=== PATIENT | male | born 1975 | race Caucasian/White ===

== ENCOUNTER 2018-04-24 14:44 | Emergency (ER) | payer MEDICAID ==
[2018-04-24 14:50] VITALS: BP 147/95
[2018-04-24] MEDS ORDERED: predniSONE 20 MG TABLET PO STA (15:10)
--- NOTE | 2018-04-24 15:13 | ED Physician Documentation ---
History of Present Illness - Stated complaint Stated Complaint: QUINONEZ/BODY SORES - Chief complaint Chief Complaint: General - History obtained from History obtained from: Patient - History of Present Illness Timing: How many weeks ago (4) Pain level max: 4 Pain level now: 4 Improved by: nothing Worsened by: nothing - Additonal information Additional information: 43-year-old male states that he had unprotected sex with a partner in mid February. Approximately 2-3 weeks later, started having body aches, muscle aches in his legs and a diffuse rash over his body. No dysuria. No rashes in the genital area. Has had a 5-10 pound weight loss over the past month. Decreased appetite. No abdominal pain. Review of Systems Constitutional: denies: Fever, Chills Nose: denies: Rhinorrhea / runny nose, Congestion Throat: denies: Sore throat Cardiac: denies: Chest pain / pressure GI: denies: Vomiting, Diarrhea Skin: denies: Rash Musculoskeletal: denies: Neck pain, Back pain Neurologic: denies: Focal weakness, Numbness, Headache PD PAST MEDICAL HISTORY - Past Medical History Past Medical History: Yes Psych: Anxiety - Past Surgical History Past Surgical History: No - Present Medications Home Medications: Ambulatory Orders Medication Instructions Recorded Confirmed predniSONE [Deltasone] 10 mg PO [id number] #42 tab 04/24/18 - Allergies Allergies/Adverse Reactions: Allergies Allergy/AdvReac Type Severity Reaction Status Date / Time No Known Drug Allergies Allergy Verified 04/24/18 14:50 - Social History Does the pt smoke?: Yes Smoking Status: Current every day smoker Does the pt drink ETOH?: Yes Does the pt have substance abuse?: Yes - Immunizations Immunizations are current?: No PD ED PE NORMAL - Vitals Vital signs reviewed: Yes - General General: Alert and oriented X 3, No acute distress - HEENT HEENT: Moist mucous membranes - Neck Neck: Supple, no meningeal sign - Cardiac Cardiac: RRR, Strong equal pulses - Respiratory Respiratory: No respiratory distress, Clear bilaterally - Male Male : Other (normal external genital exam.) - Back Back: No spinal TTP - Derm Derm: Warm and dry, Other (diffuse macular rash over the body and face. no pustules no vesicles. ) - Neuro Neuro: Alert and oriented X 3 Results - Vitals Vitals: Vital Signs - 24 hr 04/24/18 14:46 Temperature 37.3 C Heart Rate 116 H Respiratory 20 Rate Blood Pressure 147/95 H O2 Saturation 97 Oxygen O2 Source Room air - Labs Labs: Laboratory Tests 04/24/18 04/24/18 15:15 15:15 WBC 9.1 RBC 4.25 L Hgb 15.1 Hct 43.8 MCV 102.9 H MCH 35.5 H MCHC 34.5 RDW 13.2 Plt Count 142 MPV 8.0 Neut # (Auto) 7.0 H Lymph # (Auto) 1.2 L [place] # (Auto) 0.8 Eos # (Auto) 0.0 Baso # (Auto) 0.1 Absolute Nucleated RBC 0.00 Nucleated RBC % 0.0 Sodium 132 L Potassium 3.7 Chloride 97 L Carbon Dioxide 22 Anion Gap 13.0 BUN 5 L Creatinine 0.6 Estimated GFR (MDRD) 148 Glucose 104 H Calcium 8.7 Total Bilirubin 0.7 AST 129 H ALT 95 H Alkaline Phosphatase 82 Total Protein 8.5 H Albumin 3.5 Globulin 5.0 H Albumin/Globulin Ratio 0.7 L Lipase 37 PD MEDICAL DECISION MAKING - ED course Complexity details: reviewed results, re-evaluated patient, considered differential, d/w patient ED course: 43-year-old male presents to the emergency department with what sounds like a viral syndrome versus possible early HIV. HIV testing will not be returned back today, we will have him follow-up closely with his doctor for further evaluation and care. Will place on steroids to see if this helps his rash or not. Unclear etiology. Does not appear to be consistent with syphilis. There is no lymphadenopathy in the inguinal area. No penile discharge. He is very well-appearing, nontoxic. Afebrile. Does have multiple minor lab abnormalities but nothing that requires emergent intervention at this time. Patient counseled regarding signs and symptoms for which I believe and urgent re- evaluation would be necessary. Patient with good understanding of and agreement to plan and is comfortable going home at this time This document was made in part using voice recognition software. While efforts are made to proofread this document, sound alike and grammatical errors may occur. Departure - Departure Disposition: 01 Home, Self Care Clinical Impression: Rash and nonspecific skin eruption Condition: Good Instructions: ED Dermatitis Non Specific Rash [place] [facility] [place]] [facility] [Provider Group] [facility] [Provider Group] Prescriptions: predniSONE [Deltasone] 10 mg PO [id number] #42 tab Comments: Your HIV test is pending at this time. You should follow-up with your doctor for further care. It is important that you follow-up closely with [place]. Return if you worsen Discharge Date/Time: 04/24/18 15:32
[2018-04-24 15:23] LABS: BASOPHILS # (AUTO) 0.1 10^3/uL (0.0-0.1); BASOPHILS % (AUTO) 0.7 %; EOSINOPHILS % (AUTO) 0.5 %; HGB - HEMOGLOBIN 15.1 g/dL (14.0-18.0); LYMPHOCYTES # (AUTO) 1.2 10^3/uL (1.5-3.5); LYMPHOCYTES % (AUTO) 12.7 %; MEAN CORPUSCULAR HEMOGLOBIN 35.5 pg (27.0-31.0); MEAN CORPUSCULAR HGB CONC 34.5 g/dL (32.0-36.0); MEAN CORPUSCULAR VOLUME 102.9 fL (80.0-94.0); MONOCYTES # (AUTO) 0.8 10^3/uL (0.0-1.0); MONOCYTES % (AUTO) 8.5 %; NEUTROPHILS % (AUTO) 77.6 %; PLT - PLATELET COUNT 142 10^3/uL (130-450); RED BLOOD COUNT 4.25 10^6/uL (4.70-6.10); RED CELL DISTRIBUTION WIDTH 13.2 % (12.0-15.0); WHITE BLOOD COUNT 9.1 x10^3/uL (4.8-10.8)
[2018-04-24 15:36] LABS: ALBUMIN 3.5 g/dL (3.2-5.5); ALBUMIN/GLOBULIN RATIO 0.7 (1.0-2.2); BILIRUBIN,TOTAL 0.7 mg/dL (0.2-1.0); CALCIUM 8.7 mg/dL (8.5-10.3); CREATININE 0.6 mg/dL (0.6-1.2); TOTAL PROTEIN 8.5 g/dL (6.7-8.2)
[2018-04-25 13:45] LABS: HIV AG/AB 4TH GEN NON-REACTIVE (NON-REACTIVE)
== END 2018-04-24 15:32 | disposition home or self-care (01) ==
LOC: ED 14:44
DX: R21 Rash and other nonspecific skin eruption (principal); F17.200 Nicotine dependence, unspecified, uncomplicated
CPT/HCPCS: 36415; 80053; 83690; 85025; 87389; 99283; J7512

== ENCOUNTER 2018-05-09 12:15 | Outpatient (CLI) | payer MEDICAID ==
[2018-05-09 17:57] LABS: ALBUMIN 3.5 g/dL (3.2-5.5); ALBUMIN/GLOBULIN RATIO 0.6 (1.0-2.2); BILIRUBIN,TOTAL 0.7 mg/dL (0.2-1.0); CALCIUM 8.7 mg/dL (8.5-10.3); CREATININE 0.7 mg/dL (0.6-1.2); TOTAL PROTEIN 9.3 g/dL (6.7-8.2)
[2018-05-09 18:02] LABS: EOSINOPHILS % (AUTO) 0.7 %; HGB - HEMOGLOBIN 15.8 g/dL (14.0-18.0); LYMPHOCYTES % (AUTO) 12.7 %; MEAN CORPUSCULAR HEMOGLOBIN 35.3 pg (27.0-31.0); MEAN CORPUSCULAR HGB CONC 33.5 g/dL (32.0-36.0); MEAN CORPUSCULAR VOLUME 105.4 fL (80.0-94.0); MEAN PLATELET VOLUME 8.5 fL (7.4-11.4); MONOCYTES % (AUTO) 11.1 %; NEUTROPHILS % (AUTO) 74.5 %; PLT - PLATELET COUNT 329 10^3/uL (130-450); RED BLOOD COUNT 4.48 10^6/uL (4.70-6.10); RED CELL DISTRIBUTION WIDTH 14.3 % (12.0-15.0); WHITE BLOOD COUNT 10.5 x10^3/uL (4.8-10.8)
[2018-05-09 18:04] LABS: ABNORMAL LYMPHS % (MANUAL) 0 %
[2018-05-09 19:54] LABS: BAND NEUTROPHILS % (MANUAL) 4 %; LYMPHOCYTES # (MANUAL) 1.9 10^3/uL (1.5-3.5); LYMPHOCYTES % (MANUAL) 17 %; MONOCYTES # (MANUAL) 1.1 10^3/uL (0.0-1.0); NEUTROPHILS # (MANUAL) 7.6 10^3/uL (1.5-6.6); NEUTROPHILS % (MANUAL) 68 %; PLATELET ESTIMATE, MANUAL NORMAL (130-450,000) (NORMAL); PLATELET MORPHOLOGY NORMAL APPEARANCE (NORMAL); RBC MORPHOLOGY (MULTIPLE) NORMAL APPEARANCE (NORMAL)
[2018-05-09 19:55] LABS: DIFFERENTIAL COMMENT MANUAL DIFFERENTIAL
== END 2018-05-09 12:16 | disposition home or self-care (01) ==
LOC: LAB.F 12:15
PROVIDERS: ATTEND Internal Medicine
DX: L42 Pityriasis rosea (principal)
CPT/HCPCS: 36415; 80053; 81599; 85025; 86592

== ENCOUNTER 2019-07-02 16:31 | Emergency (ER) | payer SELFPAY ==
[2019-07-02 17:24] LABS: BILIRUBIN,URINE NEGATIVE (NEGATIVE); GLUCOSE, URINE (UA) NEGATIVE (NEGATIVE); KETONES,URINE (UA) 40 mg/dL (NEGATIVE); LEUKOCYTE ESTERASE, URINE NEGATIVE (NEGATIVE); NITRITE,URINE NEGATIVE (NEGATIVE); OCCULT BLOOD,URINE TRACE-INTA (NEGATIVE); PH,URINE 7.5 PH (5.0-7.5); PROTEIN,URINE TRACE mg/dL (NEGATIVE); UROBILINOGEN,URINE 0.2 (NORMAL) E.U./dL (NORMAL)
[2019-07-02 17:26] LABS: CLARITY,URINE CLEAR (CLEAR)
--- NOTE | 2019-07-02 17:42 | ED Physician Documentation ---
PD HPI PED ILLNESS - Stated complaint Stated Complaint: MALE - Chief complaint Chief Complaint: General - History obtained from History obtained from: Patient - History of Present Illness Timing - onset: Other (Previously healthy 44-year-old gentleman has had several days of pink-tinged urine and blood-tinged semen today. He is not sexually active and has not been in about a year. He denies testicular or abdominal pain. No rectal pain. He is never had this before.) Review of Systems Constitutional: denies: Fever, Chills Cardiac: reports: Reviewed and negative Respiratory: reports: Reviewed and negative PD PAST MEDICAL HISTORY - Past Medical History Past Medical History: Yes Cardiovascular: None Respiratory: None Neuro: None Endocrine/Autoimmune: None GI: None : None HEENT: None Psych: Anxiety Musculoskeletal: None Derm: None - Past Surgical History Past Surgical History: No - Present Medications Home Medications: Ambulatory Orders Medication Instructions Recorded Confirmed predniSONE [Deltasone] 10 mg PO [id number] #42 tab 04/24/18 Ciprofloxacin HCl [Cipro] 500 mg PO BID #20 tablet 07/02/19 - Allergies Allergies/Adverse Reactions: Allergies Allergy/AdvReac Type Severity Reaction Status Date / Time No Known Drug Allergies Allergy Verified 07/02/19 16:53 - Social History Does the pt smoke?: Yes Smoking Status: Current every day smoker Does the pt drink ETOH?: Yes Does the pt have substance abuse?: Yes - Immunizations Immunizations are current?: No Immunizations: TDAP >10years/unknown - POLST Patient has POLST: No PD ED PE NORMAL - Vitals Vital signs reviewed: Yes - General General: Alert and oriented X 3, No acute distress - Abdomen Abdomen: Normal bowel sounds, Soft, Non tender - Male Male : Other (Nontender testicles with normal lie normal cremaster reflex. No hernia mass.) - Back Back: No CVA TTP, No spinal TTP - Neuro Neuro: Alert and oriented X 3, Normal speech Results - Vitals Vitals: Vital Signs - 24 hr 07/02/19 16:49 Temperature 37 C Heart Rate 88 Respiratory 16 Rate Blood Pressure 149/89 H O2 Saturation 99 Oxygen O2 Source Room air - Labs Labs: Laboratory Tests 07/02/19 17:02 Urine Color YELLOW Urine Clarity CLEAR Urine pH 7.5 Ur Specific [place] 1.020 Urine Protein TRACE Urine Glucose (UA) NEGATIVE Urine Ketones 40 H Urine Occult Blood TRACE-INTA Urine Nitrite NEGATIVE Urine Bilirubin NEGATIVE Urine Urobilinogen 0.2 (NORMAL) Ur Leukocyte Esterase NEGATIVE Ur Microscopic Review NOT INDICATED Urine Culture Comments NOT INDICATED PD MEDICAL DECISION MAKING - ED course ED course: He does not have any physical findings of epididymitis, but his complaints are most similar to that and as such he is given antibiotics for presumptive epididymitis. Departure - Departure Disposition: 01 Home, Self Care Clinical Impression: Blood in semen Condition: Good Record reviewed to determine appropriate education?: Yes Instructions: ED Epididymitis Prescriptions: Ciprofloxacin HCl [Cipro] 500 mg PO BID #20 tablet Comments: Which you are describing is most consistent with something called epididymitis. If it does not get better after a few days with the antibiotics please return for reevaluation, anytime if worse. Follow-up with your doctor in a week regardless.
[2019-07-02 17:51] VITALS: BP 161/81
[2019-07-02 21:23] LABS: TRICHOMONAS VAGINALIS DNA NEGATIVE (NEGATIVE)
== END 2019-07-02 17:57 | disposition home or self-care (01) ==
LOC: ED 16:31
DX: N48.89 Other specified disorders of penis (principal); F17.200 Nicotine dependence, unspecified, uncomplicated
CPT/HCPCS: 81001; 81003; 87086; 87491; 87591; 87661; 99283

== ENCOUNTER 2020-07-11 16:52 | Outpatient (CLI) | payer MEDICAID, OTHER | END 2020-07-11 16:53 | disposition home or self-care (01) | LOC: COV 16:52 | PROVIDERS: ATTEND Family Medicine | DX: Z20.822 Contact with and (suspected) exposure to COVID-19 (principal) ==